=== PATIENT | female | born 1930 | race Caucasian/White ===

== ENCOUNTER 2020-11-20 17:31 | Inpatient (IN) ==
--- NOTE | 2020-11-20 17:45 | Emergency Department Note ---
HPI General Chief complaint: Altered Mental Status Stated complaint: confusion back pain Time Seen by Provider: 11/20/20 17:42 Source: family and EMS Mode of arrival: EMS History of Present Illness HPI Narrative: Narrative: The patient is a very pleasant 89-year-old female who presents with nausea and mild confusion after she took a dose of Lodine/etodolac. The patient was recently diagnosed with a new wedge compression fracture of the thoracic spine at the level of T7. She denies any new injuries today. Denies fevers or headache or neck pain or recent falls. The patient presents with her and states that after first dose of the Lodine and she then started having nausea and vomiting denies any hematemesis or hematic hematochezia or any hemoptysis. Patient denies any chest pain fevers or shortness of breath denies dysuria or hematuria. Denies any history of prior adverse reactions to NSAIDs. The patient's spouse also states that she had a previous kyphoplasty approximately [address] Arroyo/orthopedic surgeon and also states that when she fell last Monday that she hit the back of her head as well. Patient is also complaining of recurrent thoracic back pain. Related Data Home Medications Medication Instructions Recorded Confirmed aspirin 81 mg PO QHS 12/26/18 11/20/20 latanoprost (PF) 7.5 ml OPHTHALMIC (EYE) HS 12/26/18 11/20/20 jr-hl-[id number]-[id number]-Ca carb-vit K 1 each PO DAILY 12/26/18 11/20/20 omega 5-zsf-fme-fish oil 1,200 mg 1 cap PO QDAY cap 04/16/20 11/20/20 (144 mg-216 mg) capsule oxybutynin chloride 10 mg PO QHS 11/20/20 11/20/20 Previous Rx's Medication Instructions Recorded clonazepam 2 mg tablet 2 mg PO QHS #30 tab 11/11/20 tramadol 50 mg tablet 50 mg PO BID PRN #20 tab 11/17/20 Allergies Allergy/AdvReac Type Severity Reaction Status Date / Time hydrocodone AdvReac Mild Confusion Verified 11/20/20 21:58 oxycodone AdvReac Mild Confusion Verified 11/20/20 21:58 quinine AdvReac Mild Dizziness Verified 11/20/20 21:58 etodolac AdvReac nausea/vomi Verified 11/20/20 21:58 ting Review of Systems ROS ROS Narrative: Narrative: All systems ED: reviewed and negative except as stated. 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) Hypertriglyceridemia (Chronic) B12 deficiency (Chronic) Hypertension (Chronic) Compression fracture of body of thoracic vertebra (Chronic) Compression fracture of L2 (Chronic) Medical History B12 deficiency Compression fracture Elevated BP without diagnosis of hypertension Glaucoma Open angle Hypertension Hypertriglyceridemia Incontinence Macrocytosis without anemia Restless legs Surgical History History of bilateral cataract extraction History of bladder surgery bladder tuck History of kyphoplasty (12/26/18) Family History Sister Breast cancer Mother Skin cancer Social History Smoking Status: Former smoker Alcohol Intake Frequency: 0-2 drinks per day Substance Use: does not use Exam Narrative Narrative: Narrative: General General appearance: Present alert, anxious and other (The patient is awake and alert, she is mildly confused and ill appearing.) Head Head: Present atraumatic and normocephalic Eye Eye: Present normal appearance, PERRL and EOMI ENT ENT: Present normal exam, normal oropharynx and mucous membranes moist Neck Neck: Present normal inspection, full ROM and trachea midline Chest Chest: Present normal inspection and symmetric chest wall rise Respiratory Respiratory: Present normal lung sounds bilaterally Cardiovascular Cardiovascular: Present regular rate and normal rhythm Adbominal Abdominal: Present soft and normal bowel sounds; Absent tenderness, guarding, rebound and organomegaly Rectal Rectal: Present deferred Extremities Extremities: Present normal inspection and full ROM; Absent tenderness Back Back: Present normal inspection, tenderness and other (Tenderness over the midline spine at T7.) Neurological Neurological: Present alert, CN II-XII intact, motor sensory deficit, reflexes normal and other Expanded Neurological Patient oriented to: Present person and place Speech: Present fluid speech and other (Rod Machine Operator strength is 5 out of 5 in bilateral upper extremities, strength is 5 out of 5 in bilateral lower extremities at flexion of the hip as well as flexion of the knee and dorsal and plantar flexion. Proprioception is intact of bilateral great toes.) CRANIAL NERVES: EOM function (II, III, IV, ): Normal, facial sensation (V): Normal, facial palsy (VII): Normal, gag reflex (IX): Normal, spinal accessory function (XI): Normal and tongue deviation (XII): Normal CEREBELLAR FUNCTION: finger to nose: Normal and heel to dhaliwal: Normal Motor strength - LUE: 5/5 Motor strength - RUE: 5/5 Motor strength - LLE: 5/5 Motor strength - RLE: 5/5 DTR: 2+: biceps (L), biceps (R), triceps (L), triceps (R), patellar (L), patellar (R), Achilles tendon (L) and Achilles tendon (R) Coma Scale Eye Opening: Spontaneous Coma Scale Motor Response: Obeys Commands Coma Scale Verbal Response: Confused Coma Scale Total: 14 Psychiatric Psychiatric: Present normal affect Skin Skin: Present warm (WNL); Absent rash Course Course Course Narrative: EKG shows a rate of 79, parable 231, QRS 98, QTc 483, P waves are upright in leads I, II and III inverted in aVR, no [place] depression or elevation in lead II aVR respectively, left axis deviation, good R wave progres mickie, no acute ST segment elevation or depression, no shortened [place] interval, no biphasic T waves, otherwise is a nonspecific EKG. No STEMI. Vital Signs Vital signs: Vital Signs Temperature 99.7 F H 11/20/20 17:33 Pulse Rate 86 11/20/20 17:33 Respiratory Rate 16 11/20/20 17:33 Blood Pressure 186/91 11/20/20 17:33 Pulse Oximetry (%) 98 11/20/20 17:33 Temperature 99.3 F H 11/20/20 18:05 Pulse Rate 81 11/20/20 21:31 Respiratory Rate 16 11/20/20 17:33 Blood Pressure 171/92 11/20/20 21:31 Pulse Oximetry (%) 98 11/20/20 21:31 MDM MDM Narrative Medical decision making narrative: Narrative: History of recent fall with T7 compression fracture. Screening labs sent as well currently the patient is afebrile. We will get a CT scan of the head to rule out any intracranial injury. Currently no signs of anaphylaxis. Patient's work-up is consistent with acute hyponatremia. Patient received 1 L of IV fluids in the emergency department. CT scan of the head is negative. 20:19 spoke with the hospitalist, Dr. Martins, who graciously agreed to admit this patient. Patient and updated and are agreeable to plan. Lab Data Result diagrams: 11/20/20 17:41 11/20/20 17:41 Labs: Lab Results 11/20/20 11/20/20 11/20/20 Range/Units 17:41 17:41 17:41 WBC 8.2 (4.5-11.0) K/mcL RBC 4.24 (4.00-5.20) M/mcL Hgb 13.5 (12.0-15.0) g/dL Hct 38.3 (36.0-48.0) % POC Hct 43 (36-48) % MCV 90.3 (80.0-100.0) fL MCH 31.8 (26.0-34.0) pg MCHC 35.2 (31.0-36.0) g/dL RDW 11.6 (11.5-14.5) % Plt Count 237 (140-440) K/mcL MPV 9.8 (7.4-10.4) fL Neut % (Auto) 74.7 (38.0-78.0) % Lymph % (Auto) 18.2 (15.0-49.0) % Burnet % (Auto) 6.5 (1.0-12.0) % Eos % (Auto) 0.4 (0.0-7.0) % Baso % (Auto) 0.2 (0.0-2.0) % Lymph # (Auto) 1.49 L (1.50-4.80) K/mcL [place] # (Auto) 0.53 (0.10-0.90) K/mcL Eos # (Auto) 0.03 (0.00-0.70) K/mcL Baso # (Auto) 0.02 (0.00-0.20) K/mcL Absolute Neutrophils 6.10 (1.80-8.00) K/mcL VBG Lactic Acid (0.5-2.0) mmol/L POC Sodium 126 L (133-145) mEq/L Sodium 122 L (133-145) mmol/L POC Potassium 3.6 (3.3-5.1) mEql/L Potassium 3.6 (3.3-5.1) mmol/L POC Chloride 93 L (96-108) mEq/L Chloride 88 L (96-108) mmol/L Carbon Dioxide 19 L (22-30) mmol/L POC Total CO2 20 L (22-30) mmol/L Anion Gap 15.0 (8.0-16.0) POC BUN 17 (6-20) mg/dL BUN 15 (8-23) mg/dL Creatinine 0.6 (0.6-1.1) mg/dL POC Creatinine 0.5 L (0.6-1.2) mg/dL GFR Calculation 81 Glucose 119 H (70-105) mg/dL POC Glucose 124 H (70-105) mg/dL Calcium 9.4 (8.6-10.4) mg/dL POC WB Ioniz Calcium 1.10 L (1.16-1.32) mmEq/L Total Bilirubin 1.0 (0.1-1.0) mg/dL AST 44 H (<32) U/L ALT 32 (<40) U/L Alkaline Phosphatase 63 (39-117) U/L Ammonia (11-51) umol/L Total Creatine Kinase 174 H (24-170) U/L Troponin T (<0.03) ng/mL Total Protein 7.2 (5.9-8.4) gm/dL Albumin 4.5 (3.2-5.2) gm/dL Globulin 2.7 (2.2-3.7) gm/dL Albumin/Globulin Ratio 1.7 (1.0-2.3) Acetaminophen ug/mL Ethyl Alcohol (<0.010) gm/dL 11/20/20 11/20/20 11/20/20 Range/Units 17:41 18:20 18:20 WBC (4.5-11.0) K/mcL RBC (4.00-5.20) M/mcL Hgb (12.0-15.0) g/dL Hct (36.0-48.0) % POC Hct (36-48) % MCV (80.0-100.0) fL MCH (26.0-34.0) pg MCHC (31.0-36.0) g/dL RDW (11.5-14.5) % Plt Count (140-440) K/mcL MPV (7.4-10.4) fL Neut % (Auto) (38.0-78.0) % Lymph % (Auto) (15.0-49.0) % Burnet % (Auto) (1.0-12.0) % Eos % (Auto) (0.0-7.0) % Baso % (Auto) (0.0-2.0) % Lymph # (Auto) (1.50-4.80) K/mcL Burnet # (Auto) (0.10-0.90) K/mcL Eos # (Auto) (0.00-0.70) K/mcL Baso # (Auto) (0.00-0.20) K/mcL Absolute Neutrophils (1.80-8.00) K/mcL VBG Lactic Acid 2.2 H (0.5-2.0) mmol/L POC Sodium (133-145) mEq/L Sodium (133-145) mmol/L POC Potassium (3.3-5.1) mEql/L Potassium (3.3-5.1) mmol/L POC Chloride (96-108) mEq/L Chloride (96-108) mmol/L Carbon Dioxide (22-30) mmol/L POC Total CO2 (22-30) mmol/L Anion Gap (8.0-16.0) POC BUN (6-20) mg/dL BUN (8-23) mg/dL Creatinine (0.6-1.1) mg/dL POC Creatinine (0.6-1.2) mg/dL GFR Calculation Glucose (70-105) mg/dL POC Glucose (70-105) mg/dL Calcium (8.6-10.4) mg/dL POC WB Ioniz Calcium (1.16-1.32) mmEq/L Total Bilirubin (0.1-1.0) mg/dL AST (<32) U/L ALT (<40) U/L Alkaline Phosphatase (39-117) U/L Ammonia 30 (11-51) umol/L Total Creatine Kinase (24-170) U/L Troponin T (<0.03) ng/mL Total Protein (5.9-8.4) gm/dL Albumin (3.2-5.2) gm/dL Globulin (2.2-3.7) gm/dL Albumin/Globulin Ratio (1.0-2.3) Acetaminophen ug/mL Ethyl Alcohol < 0.010 (<0.010) gm/dL 11/20/20 11/20/20 11/20/20 Range/Units 19:39 19:54 19:54 WBC (4.5-11.0) K/mcL RBC (4.00-5.20) M/mcL Hgb (12.0-15.0) g/dL Hct (36.0-48.0) % POC Hct (36-48) % MCV (80.0-100.0) fL MCH (26.0-34.0) pg MCHC (31.0-36.0) g/dL RDW (11.5-14.5) % Plt Count (140-440) K/mcL MPV (7.4-10.4) fL Neut % (Auto) (38.0-78.0) % Lymph % (Auto) (15.0-49.0) % Burnet % (Auto) (1.0-12.0) % Eos % (Auto) (0.0-7.0) % Baso % (Auto) (0.0-2.0) % Lymph # (Auto) (1.50-4.80) K/mcL Burnet # (Auto) (0.10-0.90) K/mcL Eos # (Auto) (0.00-0.70) K/mcL Baso # (Auto) (0.00-0.20) K/mcL Absolute Neutrophils (1.80-8.00) K/mcL VBG Lactic Acid (0.5-2.0) mmol/L POC Sodium (133-145) mEq/L Sodium (133-145) mmol/L POC Potassium (3.3-5.1) mEql/L Potassium (3.3-5.1) mmol/L POC Chloride (96-108) mEq/L Chloride (96-108) mmol/L Carbon Dioxide (22-30) mmol/L POC Total CO2 (22-30) mmol/L Anion Gap (8.0-16.0) POC BUN (6-20) mg/dL BUN (8-23) mg/dL Creatinine (0.6-1.1) mg/dL POC Creatinine (0.6-1.2) mg/dL GFR Calculation Glucose (70-105) mg/dL POC Glucose (70-105) mg/dL Calcium (8.6-10.4) mg/dL POC WB Ioniz Calcium (1.16-1.32) mmEq/L Total Bilirubin (0.1-1.0) mg/dL AST (<32) U/L ALT (<40) U/L Alkaline Phosphatase (39-117) U/L Ammonia (11-51) umol/L Total Creatine Kinase (24-170) U/L Troponin T < 0.01 < 0.01 (<0.03) ng/mL Total Protein (5.9-8.4) gm/dL Albumin (3.2-5.2) gm/dL Globulin (2.2-3.7) gm/dL Albumin/Globulin Ratio (1.0-2.3) Acetaminophen < 5.0 ug/mL Ethyl Alcohol (<0.010) gm/dL ED POC Tests ED POC Tests: CAL - SARS Antigen Negative Discharge Plan Patient/Caregiver Discharge Instructions Pt seen by REFUGE WORKER/PA only: No Clinical Impression: Confusion, Compression fracture, Acute hyponatremia Back pain Qualifiers: Back pain location: thoracic back pain Chronicity: acute Back pain laterality: midline Qualified Code(s): M54.6 - Pain in thoracic spine Patient Disposition: Xfer As Inpt ([facility]) Condition: Fair Discharge Date/Time: 11/20/20 21:38 Discharge Location: [facility] Comment: to [id number]
[2020-11-20] MEDS ORDERED: ONDANSETRON 4 MG/2 ML VIAL IV ONE (17:56)
[2020-11-20] MEDS ORDERED: 0.9 % SODIUM CHLORIDE 500 ML IV SCH (18:00)
[2020-11-20 18:05] LABS: POC Blood Urea Nitrogen 17 mg/dL (6-20); POC CO2 20 mmol/L (22-30); POC Chloride 93 mEq/L (96-108); POC Creatinine 0.5 mg/dL (0.6-1.2); POC Glucose, Random 124 mg/dL (70-105); POC Hematocrit 43 % (36-48); POC Potassium 3.6 mEql/L (3.3-5.1); POC Sodium 126 mEq/L (133-145)
[2020-11-20 18:54] LABS: Basophils # (Auto) 0.02 K/mcL (0.00-0.20); Basophils % (Auto) 0.2 % (0.0-2.0); Eosinophils # (Auto) 0.03 K/mcL (0.00-0.70); Eosinophils % (Auto) 0.4 % (0.0-7.0); Hematocrit 38.3 % (36.0-48.0); Hemoglobin 13.5 g/dL (12.0-15.0); Lymphocytes # (Auto) 1.49 K/mcL (1.50-4.80); Lymphocytes % (Auto) 18.2 % (15.0-49.0); Mean Cell Volume 90.3 fL (80.0-100.0); Mean Corpuscular HGB Conc 35.2 g/dL (31.0-36.0); Mean Platelet Volume 9.8 fL (7.4-10.4); Monocytes # (Auto) 0.53 K/mcL (0.10-0.90); Monocytes % (Auto) 6.5 % (1.0-12.0); Neutrophils % (Auto) 74.7 % (38.0-78.0); Platelet Count 237 K/mcL (140-440); RBC 4.24 M/mcL (4.00-5.20); Red Cell Distribution Width 11.6 % (11.5-14.5); WBC 8.2 K/mcL (4.5-11.0)
[2020-11-20 19:22] LABS: ALT/SGPT 32 U/L (<40); AST/SGOT 44 U/L (<32); Albumin 4.5 gm/dL (3.2-5.2); Albumin/Globulin Ratio 1.7 (1.0-2.3); Alkaline Phosphatase 63 U/L (39-117); Blood Urea Nitrogen 15 mg/dL (8-23); Calcium 9.4 mg/dL (8.6-10.4); Carbon Dioxide 19 mmol/L (22-30); Chloride 88 mmol/L (96-108); Creatine Kinase 174 U/L (24-170); Globulin 2.7 gm/dL (2.2-3.7); Glomerular Filtration Rate 81; Glucose 119 mg/dL (70-105)
[2020-11-20] MEDS ORDERED: HYDROmorphone 0.5 MG/0.5 ML SYRINGE IV ONE (19:26)
[2020-11-20] MEDS ORDERED: KETOROLAC 15 MG/ML VIAL IV ONE (19:41)
[2020-11-20 19:46] LABS: Alcohol, Blood < 10.0 mg/dL; Alcohol,Blood < 0.010 gm/dL (<0.010)
[2020-11-20 19:59] LABS: Acetaminophen < 5.0 ug/mL
--- NOTE | 2020-11-20 21:34 | Internal Med History&Physical ---
HPI History of Present Illness Patient information: Note initiated : 11/20/20 at 9:25 pm Service Date, if different from initiated Date: [] Patient: Mirela Kang 89 y/o F admitted on for confusion back pain. Chief Complaint: [] History of present illness: Ms. Kang is a 89 year old female with a history of hypertensionuntreated, vitamin B12 deficiency, osteoporosis, vertebral compression fractures including multiple remote lumbar compression fractures status post kyphoplasty at L3 in 2019 and a recent T7 vertebrae wedge compression fracture involving approximately 40% loss in height of the vertebrae. The T7 occurred about a week ago the patient fell on her back after tripping on a rug. She was seen in the ED on 11/15/2020, X-ray showed multiple thoracic compression fractures. The patient was instructed to take Tylenol and ibuprofen prescribed methocarbamol for muscle spasms. She was discharged from the ED to home with follow-up to see her primary care provider who ordered MRI of the thoracic and lumbar spine which showed vertebral old compression fractures in lumbar vertebra and a new wedge vertebral compression fracture at T7. She was prescribed tramadol as needed pain, the patient was considered to be a possible candidate for vertebroplasty. The patient returned again to the ED morning of 11/20/2020 and was discharged home with etodolac as needed. She returns to the ED later that night with nausea and back pain. She says the etodolac makes her feel sick to her stomach. In the ED, the patient was found to have a sodium level of 122. Hospitalist were consulted for admission for hyponatremia and back pain. There is no evidence of myelopathy or radiculopathy on exam. The patient's main complaint is back pain and that the oral pain medications make her feel nauseous therefore she has not been able to get the pain under control. The patient was admitted for conservative management including pain control, physical therapy, TLSO brace as well as correcting hyponatremia. Constitutional: no fever, fatigue, or weight loss Eyes: no vision changes or pain Cardiovascular: no chest pain, no palpitations Respiratory: no cough or dyspnea Gastrointestinal: no abdominal pain, no nausea, vomiting, or diarrhea Genitourinary: no dysuria or difficulty voiding Musculoskeletal: severe back pain, no myalgia Integumentary: no skin lesion or wound Neurological: no focal weakness or numbness Psychiatric: no anxiety or depression Head: Atraumatic, normal inspection. Eyes: normal appearance, no scleral icterus. Neck: full ROM Respiratory: no respiratory distress. Cardiovascular: normal rate and rhythm, S1, S2. GI/Abdominal: soft, nontender, no guarding. Extremities: full range of motion, tenderness over the T7 region Neurological: CN II-XII intact, intact motor, intact sensation. Psychiatric: normal mood. 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) Hypertriglyceridemia (Chronic) B12 deficiency (Chronic) Hypertension (Chronic) Compression fracture of body of thoracic vertebra (Chronic) Compression fracture of L2 (Chronic) Medical History B12 deficiency Compression fracture Elevated BP without diagnosis of hypertension Glaucoma Open angle Hypertension Hypertriglyceridemia Incontinence Macrocytosis without anemia Restless legs Surgical History History of bilateral cataract extraction History of bladder surgery bladder tuck History of kyphoplasty (12/26/18) Family History Sister Breast cancer Mother Skin cancer Social History (Updated 11/17/20 @ 08:19 by Mily Montemayor RN) marital status: occupational status: retired smoking status: Former smoker quit date: 07/10/69 alcohol intake frequency: 0-2 drinks per day substance use type: does not use MEDS/ALLERGIES Home Medications and Allergies Home Medications Medication Instructions Recorded Confirmed Type aspirin 81 mg PO QHS 12/26/18 11/20/20 History latanoprost (PF) 7.5 ml OP HS 12/26/18 11/20/20 History zu-[id number]-Ca carb-vit K 1 each PO DAILY 12/26/18 11/20/20 History calcium carbonate [Caltrate 600] 1 tab PO QDAY 04/16/20 11/20/20 History omega 5-bqn-jij-fish oil 1,200 mg 1 cap PO QDAY cap 04/16/20 11/20/20 History (144 mg-216 mg) capsule mecobalamin (vitamin B12) 1,000 1,000 mcg PO QDAY #30 tab 04/22/20 11/20/20 Rx mcg chewable tablet gabapentin 300 mg capsule 300 mg PO QHS #90 cap 08/04/20 11/20/20 Rx clonazepam 2 mg tablet 2 mg PO QHS #30 tab 11/11/20 11/20/20 Rx methocarbamol 750 mg PO Q8HP PRN #30 tab 11/15/20 11/20/20 Rx tramadol 50 mg tablet 50 mg PO BID PRN #20 tab 11/17/20 11/20/20 Rx alendronate 70 mg tablet 70 mg PO QWEEK #24 tab 11/19/20 11/20/20 Rx cranberry extract 650 mg PO DAILY 11/20/20 11/20/20 History oxybutynin chloride 10 mg PO QHS 11/20/20 11/20/20 History Allergies Allergy/AdvReac Type Severity Reaction Status Date / Time hydrocodone AdvReac Mild Confusion Verified 11/19/20 16:51 oxycodone AdvReac Mild Confusion Verified 11/19/20 16:51 quinine AdvReac Mild Dizziness Verified 11/19/20 16:51 etodolac AdvReac nausea/vomi Verified 11/20/20 15:07 ting EXAM Constitutional Vitals: Temp Pulse Resp BP Pulse Ox 99.3 F H 88 16 182/83 95 11/20/20 18:05 11/20/20 20:46 11/20/20 17:33 11/20/20 20:46 11/20/20 20:46 DATA Data Completed and Pending Labs: Labs from last 24 hours 11/20/20 11/20/20 11/20/20 19:54 19:54 19:39 WBC RBC Hgb Hct POC Hct MCV MCH MCHC RDW Plt Count MPV Neut % (Auto) Lymph % (Auto) [place] % (Auto) Eos % (Auto) Baso % (Auto) Lymph # (Auto) [place] # (Auto) Eos # (Auto) Baso # (Auto) Absolute Neutrophils VBG Lactic Acid POC Sodium Sodium POC Potassium Potassium POC Chloride Chloride Carbon Dioxide POC Total CO2 Anion Gap POC BUN BUN Creatinine POC Creatinine GFR Calculation Glucose POC Glucose Calcium POC WB Ioniz Calcium Total Bilirubin AST ALT Alkaline Phosphatase Ammonia Total Creatine Kinase Troponin T < 0.01 < 0.01 Total Protein Albumin Globulin Albumin/Globulin Ratio Acetaminophen < 5.0 Drug Screen Specimen Pending Ethyl Alcohol 11/20/20 11/20/20 11/20/20 18:20 18:20 17:41 WBC RBC Hgb Hct POC Hct MCV MCH MCHC RDW Plt Count MPV Neut % (Auto) Lymph % (Auto) [place] % (Auto) Eos % (Auto) Baso % (Auto) Lymph # (Auto) [place] # (Auto) Eos # (Auto) Baso # (Auto) Absolute Neutrophils VBG Lactic Acid 2.2 H POC Sodium Sodium POC Potassium Potassium POC Chloride Chloride Carbon Dioxide POC Total CO2 Anion Gap POC BUN BUN Creatinine POC Creatinine GFR Calculation Glucose POC Glucose Calcium POC WB Ioniz Calcium Total Bilirubin AST ALT Alkaline Phosphatase Ammonia 30 Total Creatine Kinase Troponin T Total Protein Albumin Globulin Albumin/Globulin Ratio Acetaminophen Drug Screen Specimen Ethyl Alcohol < 0.010 11/20/20 11/20/20 11/20/20 17:41 17:41 17:41 WBC 8.2 RBC 4.24 Hgb 13.5 Hct 38.3 POC Hct 43 MCV 90.3 MCH 31.8 MCHC 35.2 RDW 11.6 Plt Count 237 MPV 9.8 Neut % (Auto) 74.7 Lymph % (Auto) 18.2 [place] % (Auto) 6.5 Eos % (Auto) 0.4 Baso % (Auto) 0.2 Lymph # (Auto) 1.49 L [place] # (Auto) 0.53 Eos # (Auto) 0.03 Baso # (Auto) 0.02 Absolute Neutrophils 6.10 VBG Lactic Acid POC Sodium 126 L Sodium 122 L POC Potassium 3.6 Potassium 3.6 POC Chloride 93 L Chloride 88 L Carbon Dioxide 19 L POC Total CO2 20 L Anion Gap 15.0 POC BUN 17 BUN 15 Creatinine 0.6 POC Creatinine 0.5 L GFR Calculation 81 Glucose 119 H POC Glucose 124 H Calcium 9.4 POC WB Ioniz Calcium 1.10 L Total Bilirubin 1.0 AST 44 H ALT 32 Alkaline Phosphatase 63 Ammonia Total Creatine Kinase 174 H Troponin T Total Protein 7.2 Albumin 4.5 Globulin 2.7 Albumin/Globulin Ratio 1.7 Acetaminophen Drug Screen Specimen Ethyl Alcohol A/P Narrative A/P Narrative: Assessment: 89 year old female with a history of hypertension (untreated), vitamin B12 deficiency, osteoporosis, vertebral compression fractures including multiple remote lumbar compression fractures status post vertebroplasty at L3 in 2019 and about a week ago suffered a fall at home resulting in a new T7 vertebrae wedge compression fracture involving approximately 40% loss in height of the vertebrae. The patient has had multiple ED visits for back pain since her fall, finally presenting with hyponatremia and intractable back pain as well as nausea secondary to oral pain medications. No evidence of myelopathy or radiculopathy from T7 compression fracture. Hyponatremia likely related to volume depletion as well as nausea and pain induced ADH release. Lactic acid was mildly elevated, blood pressure elevated. No evidence of infectious process. #Severe hyponatremia-hypovolemic #Acute T7 compression fracture #Intractable back pain secondary to T7 fracture #Nausea likely secondary to oral pain medications #Osteoporosis #Hypertension-untreated at home Plan -IV fluid, ollow sodium, avoid overcorrection. -Scheduled and prn multimodal analgesic regimen. -Flexeril prn for muscle spasms. -TLSO brace -PT/OT -Regular diet. -Bowel regimen. -DVT ppx: Lovenox -Code status: Full -Disposition: home, consider referral for vertebroplasty if conservative measures fail. Time Spent With Patient Time: Total time spent is greater than 50% in coordination of care (as documented) at patient's floor/unit and/or counseling patient:
[2020-11-20] MEDS ORDERED: KETOROLAC 30 MG/ML VIAL IV SCH (21:54)
[2020-11-20] MEDS ORDERED: HYDROmorphone 0.5 MG/0.5 ML SYRINGE IV PRN (21:54)
[2020-11-20] MEDS ORDERED: ACETAMINOPHEN 325 MG TABLET PO SCH (21:54)
[2020-11-20] MEDS ORDERED: 0.9 % SODIUM CHLORIDE 1,000 ML IV SCH (21:54)
[2020-11-20] MEDS ORDERED: oxyCODONE HCL 5 MG TABLET PO PRN (21:54)
[2020-11-20] MEDS ORDERED: clonazePAM 1 MG TABLET PO PRN (22:03)
[2020-11-20] MEDS: SENNOSIDES 1 TABLET PO SCH (22:55)
[2020-11-20] MEDS: DOCUSATE SODIUM 100 MG CAPSULE PO SCH (22:55)
[2020-11-20] MEDS: 0.9 % SODIUM CHLORIDE 10 ML SYRINGE IV SCH (22:55)
[2020-11-20] MEDS: GABAPENTIN 300 MG CAPSULE PO SCH (22:55)
[2020-11-20] MEDS: ACETAMINOPHEN 500 MG TABLET PO SCH (22:57)
[2020-11-21] MEDS: CYCLOBENZAPRINE 10 MG TABLET PO PRN ×3 (01:34→20:05)
[2020-11-21] MEDS: ONDANSETRON 4 MG/2 ML VIAL IV PRN ×2 (02:12→21:47)
[2020-11-21] MEDS: ACETAMINOPHEN 500 MG TABLET PO SCH ×3 (05:47→21:18)
[2020-11-21] MEDS: 0.9 % SODIUM CHLORIDE 10 ML SYRINGE IV SCH ×4 (05:48→21:47)
[2020-11-21 06:35] LABS: Blood Urea Nitrogen 11 mg/dL (8-23); Calcium 8.8 mg/dL (8.6-10.4); Carbon Dioxide 25 mmol/L (22-30); Chloride 97 mmol/L (96-108); Glomerular Filtration Rate 66; Glucose 106 mg/dL (70-105)
[2020-11-21] MEDS ORDERED: 0.9 % SODIUM CHLORIDE 1,000 ML IV SCH (08:15)
[2020-11-21] MEDS: DOCUSATE SODIUM 100 MG CAPSULE PO SCH ×2 (08:25→20:05)
[2020-11-21] MEDS: CYANOCOBALAMIN (VITAMIN B-12) 500 MCG TABLET PO SCH (08:25)
[2020-11-21] MEDS: ENOXAPARIN 40 MG/0.4 ML SYRINGE SQ SCH (08:25)
--- NOTE | 2020-11-21 08:59 | Cat Scan Report ---
History: Head injury six days ago, dizziness and confusion TECHNIQUE: The brain was imaged without contrast at 2.5 mm intervals. Sagittal and coronal reformats were created. The radiation exposure was limited using dose reduction technology. FINDINGS: There are symmetric low-attenuation lesions in the external capsules bilaterally, deep to the sylvian fissures. The one on the left measures 9 x 19 mm the one on the right measures 8 x 18 mm. These have no mass effect. These may be old infarcts or zones of severe white matter screening/degeneration. There is no other evidence of an infarct. No intracranial hemorrhage or cerebral edema are present. There is mild generalized atrophy. The ventricles are normal in size. Except for mild cerebellar atrophy, the posterior fossa is normal. No abnormal extra-axial fluid collection is present. Bone windows show no skull fracture. The visualized sinuses and orbits are normal. 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 Atrophy Interpreted and Authenticated by: Julien Villavicencio 11/21/20
[2020-11-21] MEDS ORDERED: CALCIUM CARBONATE PO SCH (09:00)
--- NOTE | 2020-11-21 09:02 | XRay Report ---
HISTORY: Chest pain FINDINGS: The lungs are clear and well expanded. The heart size and pulmonary vasculature are normal. Aorta is mildly tortuous. The mediastinum and yamil are otherwise normal. No pleural effusion is present. No fracture is detected. IMPRESSION: Normal exam Interpreted and Authenticated by: Julien Villavicencio 11/21/20
--- NOTE | 2020-11-21 09:46 | Internal Med Progress Note ---
SUBJECTIVE Subjective Patient information: Note initiated : 11/21/20 at 9:45 am Service Date, if different from initiated Date: [] Patient: Mirela Kang 89 y/o F admitted on 11/20/20 for confusion back pain. Chief Complaint: [] Interval history: Ms. Kang is a 89 year old female with a history of hypertensionuntreated, vitamin B12 deficiency, osteoporosis, vertebral compression fractures including multiple remote lumbar compression fractures status post kyphoplasty at L3 in 2019 and a recent T7 vertebrae wedge compression fracture involving approximately 40% loss in height of the vertebrae. The T7 occurred about a week ago the patient fell on her back after tripping on a rug. She was seen in the ED on 11/15/2020, X-ray showed multiple thoracic compression fractures. The patient was instructed to take Tylenol and ibuprofen prescribed methocarbamol for muscle spasms. She was discharged from the ED to home with follow-up to see her primary care provider who ordered MRI of the thoracic and lumbar spine which showed vertebral old compression fractures in lumbar vertebra and a new wedge vertebral compression fracture at T7. She was prescribed tramadol as needed pain, the patient was considered to be a possible candidate for vertebroplasty. The patient returned again to the ED morning of 11/20/2020 and was discharged home with etodolac as needed. She returns to the ED later that night with nausea and back pain. She says the etodolac makes her feel sick to her stomach. In the ED, the patient was found to have a sodium level of 122. Hospitalist were consulted for admission for hyponatremia and back pain. There is no evidence of myelopathy or radiculopathy on exam. The patient's main complaint is back pain and that the oral pain medications make her feel nauseous therefore she has not been able to get the pain under control. The patient was admitted for conservative management including pain control, physical therapy, TLSO brace as well as correcting hyponatremia. 11/21-hyponatremia resolving, discontinued IV fluid, pain fairly well controlled this morning, waiting for PT/OT, she has an appointment with pain medicine on Monday. Head: Atraumatic, normal inspection. Eyes: normal appearance, no scleral icterus. Neck: full ROM Respiratory: no respiratory distress. Cardiovascular: normal rate and rhythm, S1, S2. GI/Abdominal: soft, nontender, no guarding. Extremities: full range of motion, tenderness over the T7 region Neurological: CN II-XII intact, intact motor, intact sensation. Psychiatric: normal mood. Skin: warm, normal color Constitutional Vitals: Vital Signs Temp Pulse Resp BP Pulse Ox 98.2 F 71 16 140/81 95 11/21/20 07:47 11/21/20 07:47 11/21/20 07:47 11/21/20 07:47 11/21/20 07:47 Period Temp Pulse Resp BP Sys/Rodriguez Pulse Ox Last 24 Hr 98.2 F-99.7 F 71-91 16-20 140-186/78-93 94-99 Intake and Output 11/20/20 11/21/20 11/21/20 21:59 05:59 13:59 Intake Total 500 420 715 Balance 500 420 715 Weight 61.235 kg Intake & Output: Intake & Output 11/20/20 11/21/20 11/21/20 21:59 05:59 13:59 Intake Total 500 420 715 Balance 500 420 715 Weight 61.235 kg Intake: IV 500 715 Sodium Chloride 0.9% 1,000 ml @ 715 75 mls/hr IV .[id number] [facility] Rx#: [id number] Sodium Chloride 0.9% 500 ml @ 500 Wide Open IV .Q0M [facility] Rx#: [id number] Oral 420 OBJ DATA Labs CBC & Chem 7: 11/20/20 17:41 11/21/20 05:21 Labs: Abnormal Lab Results 11/21/20 11/20/20 11/20/20 05:21 23:00 17:41 Lymph # (Auto) VBG Lactic Acid 2.2 H POC Sodium Sodium 129 L 126 L POC Chloride Chloride Carbon Dioxide POC Total CO2 Anion Gap 7.0 L POC Creatinine Glucose 106 H POC Glucose POC WB Ioniz Calcium AST Total Creatine Kinase 11/20/20 11/20/20 11/20/20 17:41 17:41 17:41 Lymph # (Auto) 1.49 L VBG Lactic Acid POC Sodium 126 L Sodium 122 L POC Chloride 93 L Chloride 88 L Carbon Dioxide 19 L POC Total CO2 20 L Anion Gap POC Creatinine 0.5 L Glucose 119 H POC Glucose 124 H POC WB Ioniz Calcium 1.10 L AST 44 H Total Creatine Kinase 174 H Meds: Medications Acetaminophen (Acetaminophen 500 Mg Tablet) 1,000 mg PO Q8H [facility]; Protocol Last Admin: 11/21/20 05:47 Dose: 1,000 mg Documented by: Aspirin (Aspirin 81 Mg Tab.Chew) 81 mg PO QHS [facility] Clonazepam (Clonazepam 1 Mg Tablet) 2 mg PO HSP PRN PRN Reason: Insomnia Cyanocobalamin (Cyanocobalamin (Vitamin B-12) 500 Mcg Tablet) 1,000 mcg PO DAILY [facility] Last Admin: 11/21/20 08:25 Dose: 1,000 mcg Documented by: Cyclobenzaprine HCl (Cyclobenzaprine 10 Mg Tablet) 5 mg PO TIDP PRN PRN Reason: Muscle Spasm Last Admin: 11/21/20 01:34 Dose: 5 mg Documented by: Docusate Sodium (Docusate Sodium 100 Mg Capsule) 100 mg PO BID [facility] Last Admin: 11/21/20 08:25 Dose: 100 mg Documented by: Enoxaparin Sodium (Enoxaparin 40 Mg/0.4 Ml Syringe) 40 mg SQ DAILY [facility] Last Admin: 11/21/20 08:25 Dose: 40 mg Documented by: Gabapentin (Gabapentin 300 Mg Capsule) 300 mg PO QHS [facility] Last Admin: 11/20/20 22:55 Dose: 300 mg Documented by: Hydromorphone HCl (Hydromorphone 0.5 Mg/0.5 Ml Syringe) 0.5 mg IV Q2HP PRN; Protocol PRN Reason: Per Pain Protocol Last Admin: 11/21/20 02:11 Dose: 0.5 mg Documented by: Sodium Chloride (Sodium Chloride 0.9%) 1,000 mls @ 150 mls/hr IV .Q6H40M [facility] Stop: 11/21/20 11:14 Last Admin: 11/21/20 08:43 Dose: 150 mls/hr Documented by: Ketorolac Tromethamine (Ketorolac 30 Mg/Ml Vial) 15 mg IV Q6HP [facility]; Protocol Stop: 11/22/20 20:23 Last Admin: 11/21/20 01:34 Dose: 15 mg Documented by: Latanoprost (Latanoprost Ophth Drops 2.5ml Bottle) 1 gtt OU HS [facility] Ondansetron HCl (Ondansetron 4 Mg/2 Ml Vial) 4 mg IV Q6HP PRN PRN Reason: Nausea And Vomiting Last Admin: 11/21/20 02:12 Dose: 4 mg Documented by: Oxycodone HCl (Oxycodone Hcl 5 Mg Tablet) 5 mg PO Q4HP PRN; Protocol PRN Reason: Per Pain Protocol Last Admin: 11/21/20 02:26 Dose: 5 mg Documented by: Senna (Sennosides 1 Tablet) 2 tab PO HS [facility] Last Admin: 11/20/20 22:55 Dose: 2 tab Documented by: Sodium Chloride (0.9 % Sodium Chloride 10 Ml Syringe) 10 ml IV Q8 [facility] Last Admin: 11/21/20 05:48 Dose: 10 ml Documented by: A/P Narrative A/P Narrative: Assessment: 89 year old female with a history of hypertension (untreated), vitamin B12 deficiency, osteoporosis, vertebral compression fractures including multiple remote lumbar compression fractures status post vertebroplasty at L3 in 2019 and about a week ago suffered a fall at home resulting in a new T7 vertebrae wedge compression fracture involving approx imately 40% loss in height of the vertebrae. The patient has had multiple ED visits for back pain since her fall, finally presenting with hyponatremia and intractable back pain as well as nausea secondary to oral pain medications. No evidence of myelopathy or radiculopathy from T7 compression fracture. Hyponatremia likely related to volume depletion as well as nausea and pain induced ADH release. Lactic acid was mildly elevated, blood pressure elevated. No evidence of infectious process. #Hyponatremia (hypovolemic)-resolving #Acute T7 compression fracture #Intractable back pain secondary to T7 fracture #Osteoporosis #Hypertension-untreated at home Plan -Follow sodium. -Scheduled and prn multimodal analgesic regimen. -Flexeril prn for muscle spasms. -TLSO brace -PT/OT -Regular diet. -Bowel regimen. -DVT ppx: Lovenox -Code status: Full -Disposition: TBD, consideration of vertebroplasty if conservative measures fail. Time Spent With Patient Time: Total time spent is greater than 50% in coordination of care (as documented) at patient's floor/unit and/or counseling patient: QUALITY Stroke Symptom Onset Unknown: No VTE Deep Vein Thrombosis/Pulmonary Embolism Present on Admission: No
--- NOTE | 2020-11-21 13:37 | Internal Med Progress Note ---
SUBJECTIVE Subjective Patient information: Note initiated : 11/21/20 at 1:35 pm Service Date, if different from initiated Date: [] Patient: Mirela Kang 89 y/o F admitted on 11/20/20 for confusion back pain. Chief Complaint: [] Interval history: Ms. Kang is a 89 year old female with a history of hypertensionuntreated, vitamin B12 deficiency, osteoporosis, vertebral compression fractures including multiple remote lumbar compression fractures status post kyphoplasty at L3 in 2018 and a recent T7 vertebrae wedge compression fracture involving approximately 40% loss in height of the vertebrae. The T7 occurred about a week ago the patient fell on her back after tripping on a rug. She was seen in the ED on 11/15/2020, X-ray showed multiple thoracic compression fractures. The patient was instructed to take Tylenol and ibuprofen prescribed methocarbamol for muscle spasms. She was discharged from the ED to home with follow-up to see her primary care provider who ordered MRI of the thoracic and lumbar spine which showed vertebral old compression fractures in lumbar vertebra and a new wedge vertebral compression fracture at T7. She was prescribed tramadol as needed pain, the patient was considered to be a possible candidate for vertebroplasty. The patient returned again to the ED morning of 11/20/2020 and was discharged home with etodolac as needed. She returns to the ED later that night with nausea and back pain. She says the etodolac makes her feel sick to her stomach. In the ED, the patient was found to have a sodium level of 122. Hospitalist were consulted for admission for hyponatremia and back pain. There is no evidence of myelopathy or radiculopathy on exam. The patient's main complaint is back pain and that the oral pain medications make her feel nauseous therefore she has not been able to get the pain under control. The patient was admitted for conservative management including pain control, physical therapy, TLSO brace as well as correcting hyponatremia. 11/21-hyponatremia resolving, discontinued IV fluid, pain fairly well controlled this morning, waiting for PT/OT, she has an appointment with pain medicine on Monday. 11/22 Constitutional Vitals: Vital Signs Temp Pulse Resp BP Pulse Ox 98.7 F 71 14 139/73 95 11/21/20 11:54 11/21/20 11:54 11/21/20 11:54 11/21/20 11:54 11/21/20 11:54 Period Temp Pulse Resp BP Sys/Rodriguez Pulse Ox Last 24 Hr 98.2 F-99.7 F 71-91 14-20 139-186/73-93 94-99 Intake and Output 11/20/20 11/21/20 11/21/20 21:59 05:59 13:59 Intake Total 721 811 9414 Balance 715 317 2615 Weight 61.235 kg 61.235 kg Patient Weight 11/22/20 05:59 Weight 61.235 kg Intake & Output: Intake & Output 11/20/20 11/21/20 11/21/20 21:59 05:59 13:59 Intake Total 485 407 2074 Balance 176 896 6120 Weight 61.235 kg 61.235 kg Intake: IV 500 1175 Sodium Chloride 0.9% 1,000 ml @ 1175 75 mls/hr IV .[id number] [facility] Rx#: [id number] Sodium Chloride 0.9% 500 ml @ 500 Wide Open IV .Q0M [facility] Rx#: [id number] Oral 420 Other: # Voids 1 Exam: General: Alert, Awake, No acute Distress Eyes/N/T: EOMI, Head/Neck: neck supple, CV: RRR, No murmurs, Pulm: Clear b/l, no wheezing/rhonchi/rales Abd: soft, nontender, +BS x4 Ext: no clubbing/cyanosis/edema Neuro: Alert, no focal deficits, moves all extremities, Skin: warm/dry OBJ DATA Labs CBC & Chem 7: 11/20/20 17:41 11/21/20 05:21 Labs: Abnormal Lab Results 11/21/20 11/20/20 11/20/20 05:21 23:00 17:41 Lymph # (Auto) VBG Lactic Acid 2.2 H POC Sodium Sodium 129 L 126 L POC Chloride Chloride Carbon Dioxide POC Total CO2 Anion Gap 7.0 L POC Creatinine Glucose 106 H POC Glucose POC WB Ioniz Calcium AST Total Creatine Kinase 11/20/20 11/20/20 11/20/20 17:41 17:41 17:41 Lymph # (Auto) 1.49 L VBG Lactic Acid POC Sodium 126 L Sodium 122 L POC Chloride 93 L Chloride 88 L Carbon Dioxide 19 L POC Total CO2 20 L Anion Gap POC Creatinine 0.5 L Glucose 119 H POC Glucose 124 H POC WB Ioniz Calcium 1.10 L AST 44 H Total Creatine Kinase 174 H Meds: Medications Acetaminophen (Acetaminophen 500 Mg Tablet) 1,000 mg PO Q8H [facility]; Protocol Last Admin: 11/21/20 12:57 Dose: 1,000 mg Documented by: Aspirin (Aspirin 81 Mg Tab.Chew) 81 mg PO QHS [facility] Clonazepam (Clonazepam 1 Mg Tablet) 2 mg PO HSP PRN PRN Reason: Insomnia Cyanocobalamin (Cyanocobalamin (Vitamin B-12) 500 Mcg Tablet) 1,000 mcg PO DAILY [facility] Last Admin: 11/21/20 08:25 Dose: 1,000 mcg Documented by: Cyclobenzaprine HCl (Cyclobenzaprine 10 Mg Tablet) 5 mg PO TIDP PRN PRN Reason: Muscle Spasm Last Admin: 11/21/20 12:57 Dose: 5 mg Documented by: Docusate Sodium (Docusate Sodium 100 Mg Capsule) 100 mg PO BID [facility] Last Admin: 11/21/20 08:25 Dose: 100 mg Documented by: Enoxaparin Sodium (Enoxaparin 40 Mg/0.4 Ml Syringe) 40 mg SQ DAILY [facility] Last Admin: 11/21/20 08:25 Dose: 40 mg Documented by: Gabapentin (Gabapentin 300 Mg Capsule) 300 mg PO QHS [facility] Last Admin: 11/20/20 22:55 Dose: 300 mg Documented by: Hydromorphone HCl (Hydromorphone 0.5 Mg/0.5 Ml Syringe) 0.5 mg IV Q2HP PRN; Protocol PRN Reason: Per Pain Protocol Last Admin: 11/21/20 02:11 Dose: 0.5 mg Documented by: Ketorolac Tromethamine (Ketorolac 30 Mg/Ml Vial) 15 mg IV Q6HP [facility]; Protocol Stop: 11/22/20 20:23 Last Admin: 11/21/20 01:34 Dose: 15 mg Documented by: Latanoprost (Latanoprost Ophth Drops 2.5ml Bottle) 1 gtt OU HS [facility] Ondansetron HCl (Ondansetron 4 Mg/2 Ml Vial) 4 mg IV Q6HP PRN PRN Reason: Nausea And Vomiting Last Admin: 11/21/20 02:12 Dose: 4 mg Documented by: Oxycodone HCl (Oxycodone Hcl 5 Mg Tablet) 5 mg PO Q4HP PRN; Protocol PRN Reason: Per Pain Protocol Last Admin: 11/21/20 02:26 Dose: 5 mg Documented by: Senna (Sennosides 1 Tablet) 2 tab PO HS [facility] Last Admin: 11/20/20 22:55 Dose: 2 tab Documented by: Sodium Chloride (0.9 % Sodium Chloride 10 Ml Syringe) 10 ml IV Q8 [facility] Last Admin: 11/21/20 05:48 Dose: 10 ml Documented by: A/P Narrative A/P Narrative: A: #Hyponatremia (hypovolemic): resolving #Acute T7 compression fracture: #Intractable back pain: secondary to T7 fracture #Osteoporosis #Hypertension: untreated at home Plan: -Follow sodium -Scheduled and prn multimodal analgesic regimen -Flexeril prn for muscle spasms -TLSO brace -PT/OT -Regular diet, Bowel regimen -Disposition: TBD, consideration of vertebroplasty if conservative measures fail. -DVT ppx: Lovenox Code status: Enforcement Manager Spent With Patient Time: Total time spent is greater than 50% in coordination of care (as documented) at patient's floor/unit and/or counseling patient: QUALITY Stroke Symptom Onset Unknown: No VTE Deep Vein Thrombosis/Pulmonary Embolism Present on Admission: No
[2020-11-21] MEDS: GABAPENTIN 300 MG CAPSULE PO SCH (20:05)
[2020-11-21] MEDS: ASPIRIN 81 MG TAB.CHEW PO SCH (20:05)
[2020-11-21] MEDS: SENNOSIDES 1 TABLET PO SCH (20:08)
[2020-11-21] MEDS: LATANOPROST OPHTH DROPS 2.5ML BOTTLE OU SCH (20:08)
[2020-11-22] MEDS: 0.9 % SODIUM CHLORIDE 10 ML SYRINGE IV SCH ×3 (06:09→20:57)
[2020-11-22] MEDS: ACETAMINOPHEN 500 MG TABLET PO SCH ×3 (06:31→21:03)
[2020-11-22 07:02] LABS: Blood Urea Nitrogen 11 mg/dL (8-23); Calcium 9.6 mg/dL (8.6-10.4); Carbon Dioxide 25 mmol/L (22-30); Chloride 102 mmol/L (96-108); Glomerular Filtration Rate 66; Glucose 93 mg/dL (70-105)
--- NOTE | 2020-11-22 07:52 | Internal Med Progress Note ---
SUBJECTIVE Subjective Patient information: Note initiated : 11/22/20 at 7:50 am Service Date, if different from initiated Date: [] Patient: Mirela Kang 89 y/o F admitted on 11/20/20 for confusion back pain. Chief Complaint: [] Interval history: Ms. Kang is a 89 year old female with a history of hypertensionuntreated, vitamin B12 deficiency, osteoporosis, vertebral compression fractures including multiple remote lumbar compression fractures status post kyphoplasty at L3 in 2018 and a recent T7 vertebrae wedge compression fracture involving approximately 40% loss in height of the vertebrae. The T7 occurred about a week ago the patient fell on her back after tripping on a rug. She was seen in the ED on 11/15/2020, X-ray showed multiple thoracic compression fractures. The patient was instructed to take Tylenol and ibuprofen prescribed methocarbamol for muscle spasms. She was discharged from the ED to home with follow-up to see her primary care provider who ordered MRI of the thoracic and lumbar spine which showed vertebral old compression fractures in lumbar vertebra and a new wedge vertebral compression fracture at T7. She was prescribed tramadol as needed pain, the patient was considered to be a possible candidate for vertebroplasty. The patient returned again to the ED morning of 11/20/2020 and was discharged home with etodolac as needed. She returns to the ED later that night with nausea and back pain. She says the etodolac makes her feel sick to her stomach. In the ED, the patient was found to have a sodium level of 122. Hospitalist were consulted for admission for hyponatremia and back pain. There is no evidence of myelopathy or radiculopathy on exam. The patient's main complaint is back pain and that the oral pain medications make her feel nauseous therefore she has not been able to get the pain under control. The patient was admitted for conservative management including pain control, physical therapy, TLSO brace as well as correcting hyponatremia. 11/21-hyponatremia resolving, discontinued IV fluid, pain fairly well controlled this morning, waiting for PT/OT, she has an appointment with pain medicine on Monday. 11/22 pain better controlled today. Was able to go to the bathroom herself last night. Overall slept better. Had a little nausea after medications this morning but improved. Review of Systems: denies headache/fever/chills/vomiting/chest or abdominal pain/cough/dyspnea/diarrhea. Otherwise see above. Constitutional Vitals: Vital Signs Temp Pulse Resp BP Pulse Ox 98.3 F 83 16 176/84 96 11/22/20 06:57 11/22/20 06:57 11/22/20 06:57 11/22/20 06:57 11/22/20 06:57 Period Temp Pulse Resp BP Sys/Rodriguez Pulse Ox Last 24 Hr 98.3 F-98.9 F 71-85 14-20 136-176/71-84 93-97 Intake and Output 11/21/20 11/22/20 11/22/20 21:59 05:59 13:59 Intake Total 1840 600 Output Total 1776 Balance 64 600 Weight 60.373 kg Intake & Output: Intake & Output 11/21/20 11/22/20 11/22/20 21:59 05:59 13:59 Intake Total 1840 600 Output Total 1776 Balance 64 600 Weight 60.373 kg Intake: Nourishment/Supplement quantity 240 (ml) IV 0 Sodium Chloride 0.9% 1,000 ml @ 0 150 mls/hr IV .Q6H40M [facility] Rx#: [id number] Oral 1600 600 Output: Void Amount 1775 # of times incontinent of urine 1 Other: Meal Breakfast Percent of Meal Consumed 75% Nourishment/Supplement name Ensure Enlive Urine Appearance Clear Clear Urine Color Bright Yellow Urine Odor Normal Stool Size Moderate Stool Consistency Loose # Voids 1 Exam: General: Alert, Awake, No acute Distress Eyes/N/T: EOMI, Head/Neck: neck supple, CV: RRR, No murmurs, Pulm: Clear b/l, no wheezing/rhonchi/rales Abd: soft, nontender, +BS x4 Ext: no clubbing/cyanosis/edema Neuro: Alert, no focal deficits, moves all extremities, Skin: warm/dry OBJ DATA Labs CBC & Chem 7: 11/20/20 17:41 11/22/20 05:59 Labs: Abnormal Lab Results 11/21/20 11/20/20 11/20/20 05:21 23:00 17:41 Lymph # (Auto) VBG Lactic Acid 2.2 H POC Sodium Sodium 129 L 126 L POC Chloride Chloride Carbon Dioxide POC Total CO2 Anion Gap 7.0 L POC Creatinine Glucose 106 H POC Glucose POC WB Ioniz Calcium AST Total Creatine Kinase 11/20/20 11/20/20 11/20/20 17:41 17:41 17:41 Lymph # (Auto) 1.49 L VBG Lactic Acid POC Sodium 126 L Sodium 122 L POC Chloride 93 L Chloride 88 L Carbon Dioxide 19 L POC Total CO2 20 L Anion Gap POC Creatinine 0.5 L Glucose 119 H POC Glucose 124 H POC WB Ioniz Calcium 1.10 L AST 44 H Total Creatine Kinase 174 H Meds: Medications Acetaminophen (Acetaminophen 500 Mg Tablet) 1,000 mg PO Q8H [facility]; Protocol Last Admin: 11/22/20 06:31 Dose: 1,000 mg Documented by: Aspirin (Aspirin 81 Mg Tab.Chew) 81 mg PO QHS [facility] Last Admin: 11/21/20 20:05 Dose: 81 mg Documented by: Clonazepam (Clonazepam 1 Mg Tablet) 2 mg PO HSP PRN PRN Reason: Insomnia Cyanocobalamin (Cyanocobalamin (Vitamin B-12) 500 Mcg Tablet) 1,000 mcg PO DAILY [facility] Last Admin: 11/21/20 08:25 Dose: 1,000 mcg Documented by: Cyclobenzaprine HCl (Cyclobenzaprine 10 Mg Tablet) 5 mg PO TIDP PRN PRN Reason: Muscle Spasm Last Admin: 11/21/20 20:05 Dose: 5 mg Documented by: Docusate Sodium (Docusate Sodium 100 Mg Capsule) 100 mg PO BID [facility] Last Admin: 11/21/20 20:05 Dose: 100 mg Documented by: Enoxaparin Sodium (Enoxaparin 40 Mg/0.4 Ml Syringe) 40 mg SQ DAILY [facility] Last Admin: 11/21/20 08:25 Dose: 40 mg Documented by: Gabapentin (Gabapentin 300 Mg Capsule) 300 mg PO QHS [facility] Last Admin: 11/21/20 20:05 Dose: 300 mg Documented by: Hydromorphone HCl (Hydromorphone 0.5 Mg/0.5 Ml Syringe) 0.5 mg IV Q2HP PRN; Protocol PRN Reason: Per Pain Protocol Last Admin: 11/21/20 02:11 Dose: 0.5 mg Documented by: Ketorolac Tromethamine (Ketorolac 30 Mg/Ml Vial) 15 mg IV Q6HP [facility]; Protocol Stop: 11/22/20 20:23 Last Admin: 11/21/20 01:34 Dose: 15 mg Documented by: Latanoprost (Latanoprost Ophth Drops 2.5ml Bottle) 1 gtt OU HS [facility] Last Admin: 11/21/20 20:08 Dose: 1 dose Documented by: Ondansetron HCl (Ondansetron 4 Mg/2 Ml Vial) 4 mg IV Q6HP PRN PRN Reason: Nausea And Vomiting Last Admin: 11/21/20 21:47 Dose: 4 mg Documented by: Oxycodone HCl (Oxycodone Hcl 5 Mg Tablet) 5 mg PO Q4HP PRN; Protocol PRN Reason: Per Pain Protocol Last Admin: 11/21/20 02:26 Dose: 5 mg Documented by: Senna (Sennosides 1 Tablet) 2 tab PO HS [facility] Last Admin: 11/21/20 20:08 Dose: Not Given Documented by: Sodium Chloride (0.9 % Sodium Chloride 10 Ml Syringe) 10 ml IV Q8 [facility] Last Admin: 11/22/20 06:09 Dose: 10 ml Documented by: A/P Narrative A/P Narrative: A: #Hyponatremia (hypovolemic): resolved #Acute T7 compression fracture: #Intractable back pain: secondary to T7 fracture #Osteoporosis #Hypertension: untreated at home Plan: -Scheduled and prn multimodal analgesic regimen -Flexeril prn for muscle spasms -TLSO brace -PT/OT -start norvasc -Regular diet, Bowel regimen -Disposition: TBD, consideration of vertebroplasty if conservative measures fail. -DVT ppx: Lovenox Code status: Nurse Special Spent With Patient Time: Total time spent is greater than 50% in coordination of care (as documented) at patient's floor/unit and/or counseling patient: QUALITY Stroke Symptom Onset Unknown: No VTE Deep Vein Thrombosis/Pulmonary Embolism Present on Admission: No
[2020-11-22] MEDS ORDERED: amLODIPine 5 MG TABLET PO SCH (09:00)
[2020-11-22] MEDS ORDERED: ENALAPRILAT 1.25 MG/ML VIAL IV PRN (09:04)
[2020-11-22] MEDS: DOCUSATE SODIUM 100 MG CAPSULE PO SCH ×2 (09:08→20:56)
[2020-11-22] MEDS: ENOXAPARIN 40 MG/0.4 ML SYRINGE SQ SCH (09:49)
[2020-11-22] MEDS: amLODIPine 5 MG TABLET PO SCH (09:49)
[2020-11-22] MEDS: CYANOCOBALAMIN (VITAMIN B-12) 500 MCG TABLET PO SCH (09:50)
[2020-11-22] MEDS: LIDOCAINE PATCH TOPICAL SCH (09:50)
--- NOTE | 2020-11-22 10:17 | Discharge Summary ---
Discharge Provider Provider Patient information: Note initiated : 11/22/20 at 10:17 am Service Date, if different from initiated Date: [] Patient: Mirela Kang 89 y/o F admitted on 11/20/20 for confusion back pain. Chief Complaint: [] Date of admission: 11/20/20 21:35 Discharge date: 11/23/20 Primary care physician: Chema Mims MD Consults: 11/20/20 Consult to Physician [CONS] Stat Comment: Consulting Provider: cOhoa Martins Reason For Exam: Physician to Consult Discharge Meds Discharge Medications Home Medications aspirin 81 mg PO QHS 12/26/18 [History Confirmed 11/20/20 Last Taken Unknown] latanoprost (PF) 7.5 ml OPHTHALMIC (EYE) HS 12/26/18 [History Confirmed 11/20/20 Last Taken 11/18/20 08:00] ul-qx-rbzc-FA-Ca carb-vit K 1 each PO DAILY 12/26/18 [History Confirmed 11/20/20 Last Taken 11/18/20 08:00] omega 0-mgx-few-fish oil 1,200 mg (144 mg-216 mg) capsule 1 cap PO QDAY cap 04/16/20 [History Confirmed 11/20/20 Last Taken 11/18/20 08:00] clonazepam 2 mg tablet 2 mg PO QHS #30 tab 11/11/20 [Rx Confirmed 11/20/20 Last Taken 11/19/20] tramadol 50 mg tablet 50 mg PO BID PRN #20 tab 11/17/20 [Rx Confirmed 11/20/20 Last Taken 11/19/20] alendronate 70 mg PO WEEKLY 11/20/20 [History Confirmed 11/20/20 Last Taken Unknown] methocarbamol 500 mg PO Q6HP PRN 11/20/20 [History Confirmed 11/20/20 Last Taken 11/19/20] oxybutynin chloride 10 mg PO QHS 11/20/20 [History Confirmed 11/20/20 Last Taken 11/19/20] Excedrin Extra Strength 2 tab PO Q6H PRN 11/21/20 [History Confirmed 11/21/20 Last Taken Unknown] Lubricant Eye Drops 2 drp OPHTHALMIC (EYE) BID PRN 11/21/20 [History Confirmed 11/21/20 Last Taken Unknown] diphenhydramine HCl 50 mg PO QHS PRN 11/21/20 [History Confirmed 11/21/20 Last Taken Unknown] doxylamine succinate 25 mg PO HS PRN 11/21/20 [History Confirmed 11/21/20 Last Taken Unknown] gabapentin 300 mg PO QHS 11/21/20 [History Confirmed 11/21/20 Last Taken Unknown] amlodipine 2.5 mg PO DAILY #30 tab 11/22/20 [Rx Last Taken Unknown] cyclobenzaprine 5 mg PO TIDP PRN #30 tab 11/22/20 [Rx Last Taken Unknown] lidocaine 1 patch TOPICAL DAILY@1000 #15 ea 11/22/20 [Rx Last Taken Unknown] oxycodone 5 mg PO Q4HP PRN #20 tab 11/22/20 [Rx Last Taken Unknown] COURSE Hospital Course Hospital course: Interval history: Ms. Kang is a 89 year old female with a history of hypertensionuntreated, vitamin B12 deficiency, osteoporosis, vertebral compression fractures including multiple remote lumbar compression fractures status post kyphoplasty at L3 in 2019 and a recent T7 vertebrae wedge leisa mickie fracture involving approximately 40% loss in height of the vertebrae. The T7 occurred about a week ago the patient fell on her back after tripping on a rug. She was seen in the ED on 11/15/2020, X-ray showed multiple thoracic compression fractures. The patient was instructed to take Tylenol and ibuprofen prescribed methocarbamol for muscle spasms. She was discharged from the ED to home with follow-up to see her primary care provider who ordered MRI of the thoracic and lumbar spine which showed vertebral old compression fractures in lumbar vertebra and a new wedge vertebral compression fracture at T7. She was prescribed tramadol as needed pain, the patient was considered to be a possible candidate for vertebroplasty. The patient returned again to the ED morning of 11/20/2020 and was discharged home with etodolac as needed. She returns to the ED later that night with nausea and back pain. She says the etodolac makes her feel sick to her stomach. In the ED, the patient was found to have a sodium level of 122. Hospitalist were consulted for admission for hyponatremia and back pain. There is no evidence of myelopathy or radiculopathy on exam. The patient's main complaint is back pain and that the oral pain medications make her feel nauseous therefore she has not been able to get the pain under control. The patient was admitted for conservative management including pain control, physical therapy, TLSO brace as well as correcting hyponatremia. 11/21-hyponatremia resolving, discontinued IV fluid, pain fairly well controlled this morning, waiting for PT/OT, she has an appointment with pain medicine on Monday. 11/22 pain better controlled today. Was able to go to the bathroom herself last night. Overall slept better. Had a little nausea after medications this morni ng but improved. 11/23 Pain relatively controlled. Feeling better. No overnight events. A/P Narrative: A: #Hyponatremia (hypovolemic): resolved #Acute T7 compression fracture: #Intractable back pain: secondary to T7 fracture #Osteoporosis #Hypertension: untreated at home Discharge diagnosis: Hyponatremia natremia acute T7 compression fracture osteoporosis hypertensi Time Spent with Patient Time attestation: Total time spent providing and/or coordinating discharge services: Time spent: Greater than 30 minutes EXAM Constitutional Vitals: Temp Pulse Resp BP Pulse Ox 98.3 F 83 16 176/84 96 11/22/20 06:57 11/22/20 06:57 11/22/20 06:57 11/22/20 06:57 11/22/20 06:57 Discharge Data Data Completed and Pending Labs on day of discharge: Labs from last 24 hours 11/22/20 05:59 Sodium 137 Potassium 4.0 Chloride 102 Carbon Dioxide 25 Anion Gap 10.0 BUN 11 Creatinine 0.8 GFR Calculation 66 Glucose 93 Calcium 9.6 Preliminary micro results at discharge 11/20/20 18:14 Urine Culture - Preliminary Urine - Clean Void Mid-Stream Gram negative bacillus Discharge Plan Patient/Caregiver Discharge Instructions Activity: increase activity as tolerated Diet: Regular Diet Instructions: Oxycodone/Acetaminophen (By mouth), Cyclobenzaprine (By mouth), Amlodipine (By mouth), Hyponatremia (DC) Activity Restrictions/Additional Instructions: Take blood pressure twice daily, keep a log and bring to PCP next appointment Prescriptions: New amlodipine 5 mg Tablet 2.5 mg PO DAILY Qty: 30 RF: 0 lidocaine 5 % Adhesive Patch,Medicated 1 patch topical DAILY@1000 Qty: 15 RF: 0 oxycodone 5 mg Tablet 5 mg PO Q4HP PRN (Reason: Per Pain Protocol) Qty: 20 RF: 0 cyclobenzaprine 10 mg Tablet 5 mg PO TIDP PRN (Reason: Muscle Spasm) Qty: 30 RF: 0 Continued clonazepam 2 mg tablet 2 mg PO QHS Qty: 30 RF: 2 tramadol 50 mg tablet 50 mg PO BID PRN (Reason: pain) Qty: 20 RF: 0 omega 2-ulu-dxd-fish oil [Fish Oil] 1,200 (144-216) mg capsule 1 cap PO QDAY RF: 0 aspirin 81 MG tablet,delayed release (DR/EC) 81 mg PO QHS RF: 0 dr-zr-pxlb-FA-Ca carb-vit K 1 EACH tablet 1 each PO DAILY RF: 0 latanoprost (PF) 7.5 ML drops 7.5 ml ophthalmic (eye) HS RF: 0 oxybutynin chloride 10 mg tablet extended release 24hr 10 mg PO QHS RF: 0 methocarbamol 500 mg Tablet 500 mg PO Q6HP PRN (Reason: Muscle Spasm) RF: 0 alendronate 70 mg tablet 70 mg PO WEEKLY RF: 0 gabapentin 300 mg Capsule 300 mg PO QHS RF: 0 doxylamine succinate bottle 25 mg PO HS PRN (Reason: Insomnia) RF: 0 Excedrin Extra Strength 250-250-65 mg Tablet 2 tab PO Q6H PRN (Reason: Pain (Scale Score 4-6)) RF: 0 diphenhydramine HCl 50 mg Capsule 50 mg PO QHS PRN (Reason: Insomnia) RF: 0 Lubricant Eye Drops 0.25 % Drops 2 drp OPHTHALMIC (EYE) BID PRN (Reason: Eye Irritation) RF: 0 Follow Up Plan Follow up with: Chema Mims MD [Primary Care Provider] - Juanito Aguiar MD [Physician] - Patient Disposition: Home, Self-Care Prognosis: Fair Overall status at discharge: patient is progressing back to baseline Discharge Orders: Discharge Order (Routine); Ordered 11/23/20 Ordered By: Taurus WILSL VTE Deep Vein Thrombosis/Pulmonary Embolism Present on Admission: No
[2020-11-22] MEDS: cefTRIAXone 1 GM VIAL IV SCH (13:12)
[2020-11-22] MEDS: GABAPENTIN 300 MG CAPSULE PO SCH (20:56)
[2020-11-22] MEDS: SENNOSIDES 1 TABLET PO SCH (20:56)
[2020-11-22] MEDS: ASPIRIN 81 MG TAB.CHEW PO SCH (20:56)
[2020-11-22] MEDS: LATANOPROST OPHTH DROPS 2.5ML BOTTLE OU SCH (20:57)
[2020-11-23] MEDS: 0.9 % SODIUM CHLORIDE 10 ML SYRINGE IV SCH ×2 (04:53→13:30)
[2020-11-23] MEDS: ACETAMINOPHEN 500 MG TABLET PO SCH ×2 (06:44→13:15)
[2020-11-23] MEDS: cefTRIAXone 1 GM VIAL IV SCH (08:06)
[2020-11-23] MEDS: CYANOCOBALAMIN (VITAMIN B-12) 500 MCG TABLET PO SCH (08:06)
[2020-11-23] MEDS: amLODIPine 5 MG TABLET PO SCH (08:07)
[2020-11-23] MEDS: ENOXAPARIN 40 MG/0.4 ML SYRINGE SQ SCH (08:07)
[2020-11-23] MEDS: DOCUSATE SODIUM 100 MG CAPSULE PO SCH (08:08)
[2020-11-23] MEDS: LIDOCAINE PATCH TOPICAL SCH (08:10)
--- NOTE | 2020-11-24 15:38 | History and Physical Report ---
DATE OF ADMISSION: 11/20/2020 DATE OF SERVICE: 11/23/2020 CHIEF COMPLAINT: Thoracic back pain HISTORY OF PRESENT ILLNESS: Patient is an 89-year old woman who 9 days ago got tangled up in a robe, fell and experienced severe thoracic back pain that has been persistent. She has been seen in the ER a couple of times and was admitted to the hospital. I came to see her in the hospital today over the lunch hour as she was unable to make an appointment at 10 a.m., at the Clinic as she had not been discharged yet. At present, she states her pain is better and does not need anything done. REVIEW OF SYSTEMS: Remarkable in that patient states she had considerable hypertension with this pain and had never had that before. PAST MEDICAL HISTORY: Patients medical history includes, but is not limited to: glaucoma and GERD. PAST SURGICAL HISTORY: Patients surgical history includes, but is not limited to: appendectomy and vertebroplasty in the past. MEDICATIONS: Alendronate 70 mg po weekly Amlodipine 2.5 mg 1/2 x 5 mg Aspirin 81 mg po q hs Occhdke-zxkiuscoqvaav-lzcusscf 250-250-65 mg (Excedrin Extra Strength) 2 tabs po q6h prn Carboxymethylcellulose sodium 0.25% (lubricant eye drops) 2 drops bid prn Clonazepam 2 mg po q hs Cyclobenzaprine 5 mg 1/2 x 10 mg po tid prn Diphenhydramine HCL 50 mg po q hs prn Doxylamine succinate 25 mg po hs prn Gabapentin 300 mg po q hs Latanoprost (PF) 0.005% 7.5 mL hs Lidocaine 5% 1 patch topical daily @ 1000 Methocarbamol 500 mg po q6h prn Ur-zl-jkcf-FA-Ca carb-vit K 18 mg iron-400 mcg-500 mg 1 ea po daily [place] 6-zau-lbd-fish oil 1,200 (144-216) mg (Fish oil) 1 cap po qd Oxybutynin chloride ER 10 mg po q hs Oxycodone 5 mg po q4h prn Tramadol 50 mg po bid prn ALLERGIES: Hydrocodone Oxycodone Quinine Etodolac PHYSICAL EXAM: Constitution: She is sitting up comfortable in a chair. Chest: Clear to auscultation. CV: RRR without murmur. Extremities without edema. Back: Exam is remarkable in that percussion of the spinous processes is acutely tender at approximately T7 and T8. Axial motion exacerbates a bit. DIAGNOSTICS: The patient has a thoracic MRI that was viewed. My independent interpretation is remarkable for an acute T7 compression fracture. IMPRESSION: This is an 89-year old woman with severe pain secondary to thoracic compression fracture. She turned the corner this morning and now states her pain is under control and she needs nothing done. PLAN: We want her to avoid forward-flexion, limit her movement for a period of time and if she has an acute flare call and we would assess from there. corinne LES:alberto Job ID: Doc ID: [id number] Juanito Aguiar MD
== END 2020-11-23 13:40 | disposition home or self-care (01) | DRG 641 ==
LOC: ED 17:31 → MEDSUR 21:35
PROVIDERS: ADMIT Internal Medicine; ATTEND Internal Medicine